=== PATIENT | male | born 1990 | race African-American/Black ===

== ENCOUNTER 2021-02-06 10:16 | Emergency (ER) | payer SELFPAY ==
[~2021-02-06] VITALS: Ht 170.2 cm; Wt 81.6 kg
--- NOTE | 2021-02-06 10:20 | NUR ---
TO ER BED 12, [facility], FOUND UNRESPONSIVE. GIVEN TOTAL 4MG NARCAN. AWAKE STRATEGY LEAD. AAOX3, BREATHING EVEN AND NON LABORED, CONNECTED TO MONITOR
--- NOTE | 2021-02-06 11:56 | NUR ---
IV removed. Catheter intact and site benign. Pressure and 4x4 applied to site. No bleeding noted.Patient discharged to home in stable condition. Written and verbal after care instructions given. Patient verbalizes understanding of instruction.
[2021-02-06 11:58] VITALS: BP 137/71
--- NOTE | 2021-02-06 12:02 | NUR ---
Patient does not wish to proceed with medical care recommended by Dr. LAKE. Patient given information related to possible complications, up to and including , which could occur as a result of leaving the hospital at this time. Patient verbalizes understanding of risks involved due to leaving against medical advice. Patient has signed AMA form.
== END 2021-02-06 11:59 | disposition left against medical advice (07) ==
LOC: ER 10:19
DX: T40.2X1A Poisoning by other opioids, accidental (unintentional), initial encounter (principal); Z88.6 Allergy status to analgesic agent; Y92.89 Other specified places as the place of occurrence of the external cause